=== PATIENT | male | born 1975 ===

== ENCOUNTER 2017-12-24 11:54 | Emergency (ER) | payer OTHER ==
[2017-12-24 12:32] VITALS: BP 132/81; PULSE 75; RESP 18; TEMP 99; O2SAT 98
[2017-12-24] MEDS ORDERED: Lidocaine 1% Inj (20ml) IJ ONE (12:38)
[2017-12-24] MEDS ORDERED: Lidocaine 1% Inj (20ml) ONE (12:47)
--- NOTE | 2017-12-24 12:48 | ED PDOC ---
HPI: Wound Care - HPI Time Seen by Provider: 12/24/17 12:32 Chief Complaint (Nursing): Trauma Chief Complaint (Provider): Laceration to lower lip, elbow pain History Per: Patient Exam Limitations: no limitations Onset/Duration Of Symptoms: Days (x1) Current Symptoms Are (Timing): Still Present Additional Complaint(s): 42-year-old male presents to the emergency department for evaluation of laceration. Patient states earlier today at work he fell off a ladder, striking his right lower lip onto a cement block, resulting in a laceration to the lower lip. Also report injuring left elbow. Denies headache or loss of consciousness. Tetanus is not up to date. PMD: None provided Past Medical History Reviewed: Historical Data, Nursing Documentation, Vital Signs Vital Signs: Last Vital Signs Temp 99 F 12/24/17 12:29 Pulse 75 12/24/17 12:29 Resp 18 12/24/17 12:29 BP 132/81 12/24/17 12:29 Pulse Ox 98 12/24/17 12:29 - Medical History PMH: No Chronic Diseases - Family History Family History: States: Unknown Family Hx - Home Medications Home Medications: Ambulatory Orders Medication Instructions Recorded Amoxicillin/Clavulanate [Augmentin 1 tab PO Q8 #30 tab 12/24/17 500 MG-125 MG] - Allergies Allergies/Adverse Reactions: Allergies Allergy/AdvReac Type Severity Reaction Status Date / Time No Known Allergies Allergy Verified 12/24/17 12:29 Review of Systems ROS Statement: Except As Marked, All Systems Reviewed And Found Negative Musculoskeletal: Positive for: Other (Left elbow pain/swelling) Skin: Positive for: Lesions (to right lower lip) Neurological: Negative for: Other (head trauma, LOC) Physical Exam - Reviewed Nursing Documentation Reviewed: Yes Vital Signs Reviewed: Yes - Physical Exam Appears: Positive for: Non-toxic, No Acute Distress Head Exam: Positive for: ATRAUMATIC, NORMOCEPHALIC Skin: Positive for: Normal Color (with 1.5 cm laceration at right inner lower lip that goes through, into the outer portion of the face just below the lower lip, with 1 cm facial laceration outside) Eye Exam: Positive for: EOMI, Normal appearance, PERRL ENT: Positive for: Normal ENT Inspection, TM Is/Are (normal) Pulses-Radial (L): 2+ Pulses-Radial (R): 2+ Extremity: Positive for: Tenderness (mild tenderness and swelling to medial surface of left elbow, with full ROM actively). Negative for: Deformity Neurologic/Psych: Positive for: Alert, Oriented. Negative for: Motor/Sensory Deficits - ECG O2 Sat by Pulse Oximetry: 98 (RA) Pulse Ox Interpretation: Normal Procedure: Wound Repair - Time Performed Time Performed: 13:40 - Time Out Time Out: Side verified, Site verified, Patient ID confirmed, Sterile procedures obs. - Consent Obtained Consent obtained: Emergent consent implied - Performed by Performed by: Mid-level Provider - Indications Indication(s):: Laceration - Location Location:: Lip Dimensions Length cm: 3.5 Depth:: Subcutaneous fascia - Anesthetic Technique Anesthetic Technique: Local Local/Regional Anesthetic:: Lidocaine 1% - Debris Debris:: Asphalt - Irrigated Irrigated with ml of normal saline: 1000 - Complexity Complexity:: Intermediate (2 layer) - Wound repair method Sutures:: #, Size (5-0 and 6-0), Type (proline and nylon), Technique (simple interrupted) - Patient tolerated procedure Patient Tolerated Procedure:: Well Medical Decision Making Medical Decision Making: Impression: Fall, Lip laceration, Elbow pain Time: 12:38 Initial Plan: --X-Ray Left Elbow to r/o fracture --Tdap 0.5ml IM --Ordered Lidocaine 1% for laceration repair Laceration repaired without difficulty. X-Ray, reviewed by me, shows no acute findings. Will d/c with Rx for Augmentin. Patient advised to follow up for suture removal in 7 days. There is agreement to discharge plan. Return if symptoms acutely worsen. Scribe Attestation: Documented by Ashley Orellana, acting as a scribe for Brent Vega PA-C Provider Scribe Attestation: All medical record entries made by the Scribe were at my direction and personally dictated by me. I have reviewed the chart and agree that the record accurately reflects my personal performance of the history, physical exam, medical decision making, and the department course for this patient. I have also personally directed, reviewed, and agree with the discharge instructions and disposition. Disposition - Clinical Impression Clinical Impression: Lip laceration, Elbow injury - Patient ED Disposition Is Patient to be Admitted: No Counseled Patient/Family Regarding: Studies Performed, Diagnosis, Need For Followup, Rx Given - Disposition Disposition: Routine/Home Disposition Time: 13:51 Condition: STABLE Additional Instructions: Suture removal in 7 days Prescriptions: Amoxicillin/Clavulanate [Augmentin 500 MG-125 MG] 1 tab PO Q8 #30 tab Instructions: Care For Your Stitches (ED), Elbow Sprain (ED) Forms: [employer] (Japanese), [facility] ED School/Work Excuse Print Language: ARABIC - POA Present On Arrival: Falls Or Trauma
--- NOTE | 2017-12-24 14:13 | RAD ---
PROCEDURE: Radiographs of the left elbow. HISTORY: trauma COMPARISON: No prior. FINDINGS: BONES: No acute fracture. JOINTS: Unremarkable. SOFT TISSUES: Normal. JOINT EFFUSION: None. OTHER FINDINGS: None IMPRESSION: Unremarkable radiographs of the left elbow.
== END 2017-12-24 14:09 | disposition home or self-care (01) ==
LOC: H.ER 11:54
DX: S01.511A Laceration without foreign body of lip, initial encounter (principal); S59.901A Unspecified injury of right elbow, initial encounter; W11.XXXA Fall on and from ladder, initial encounter; Y99.0 Civilian activity done for income or pay